=== PATIENT | female | born 1965 | race Caucasian/White ===

== ENCOUNTER 2019-01-24 14:23 | Outpatient (CLI) | payer BC | END 2019-01-24 15:01 | disposition home or self-care (01) | LOC: SLEEP 14:23 | PROVIDERS: ATTEND Otolaryngology Otolaryngology/Facial Plastic Surgery | DX: G47.33 Obstructive sleep apnea (adult) (pediatric) (principal) ==

== ENCOUNTER → 2019-05-02 | Outpatient (CLI) | payer BC ==
--- NOTE | 2019-05-02 12:09 | Diagnostic Imaging Report ---
INDICATION: Gastroesophageal reflux. TECHNIQUE: Study was performed in conjunction with speech pathology. Videofluoroscopy was performed during the swallowing of barium at multiple consistencies. Patient ingested thin barium as well as applesauce, banana, meat, and cracker consistency. Total of 45 seconds of fluoroscopy was utilized. FINDINGS: There is normal oral phase. There is normal epiglottic tilt and laryngeal elevation. No laryngeal penetration or aspiration was observed. IMPRESSION: Normal modified barium swallow study. Dictated by: Dictated on workstation # [id number]
== END ==
LOC: RAD 09:37
PROVIDERS: ATTEND Surgery
DX: K21.9 Gastro-esophageal reflux disease without esophagitis (principal)
CPT/HCPCS: 74230

== ENCOUNTER → 2021-03-13 | Outpatient (CLI) | payer BC ==
[2021-03-13 10:04] VITALS: BP 119/81
== END ==
LOC: CARD 09:33
PROVIDERS: ATTEND Internal Medicine Cardiovascular Disease
DX: I34.0 Nonrheumatic mitral (valve) insufficiency (principal); I10 Essential (primary) hypertension
CPT/HCPCS: 93306; 93351

== ENCOUNTER → 2023-01-16 | Outpatient (CLI) | payer BC ==
[~2023-01-16] VITALS: Ht 170.2 cm; Wt 70.5 kg
[~2023-01-16] MED LIST: LIDOCAINE 1% INJ 10 ML VIAL INJ ONE; LIDOCAINE 1% INJ 10 ML VIAL ONE
--- NOTE | 2023-01-16 12:30 | Diagnostic Imaging Report ---
INDICATION: Right lobe thyroid nodule. Patient presents for ultrasound-guided fine-needle aspiration. Patient brought to the procedure room placed on table in the supine position. Ultrasound imaging of the right neck was performed to evaluate appropriate entry site. Right neck was then prepped and draped in usual sterile fashion. Small amount 1% lidocaine was utilized for local anesthesia. 4 passes were made into the dominant solid nodule in the upper pole right lobe of thyroid utilizing 25-gauge needles and fine-needle aspiration technique. Hemostasis was obtained. Patient tolerated procedure well. IMPRESSION: Successful ultrasound-guided fine-needle aspiration of the dominant solid nodule upper pole right lobe of thyroid. Pathology results are currently pending. Dictated by: Dictated on workstation # [id number]
--- NOTE | 2023-01-16 13:01 | Diagnostic Imaging Report ---
Indication: Right lobe thyroid nodule. Patient presents for ultrasound guided fine-needle aspiration. Patient brought to the procedure room and placed on table in supine position. Ultrasound imaging right neck was performed to evaluate appropriate entry site. Right neck was then prepped and draped in usual sterile fashion. Small amount 1% lidocaine was utilized for local anesthesia. Total of 4 passes were made into the hypoechoic nodule midportion right lobe of thyroid utilizing 25-gauge needles and fine needle aspiration technique. Hemostasis was obtained. Patient tolerated the procedure well and left the Department in stable condition. IMPRESSION: Successful ultrasound guided fine-needle aspiration of a nodule in the midportion right lobe of thyroid. Pathology results are currently pending. Dictated by: Dictated on workstation # [id number]
== END ==
LOC: RAD 10:40
PROVIDERS: ATTEND Otolaryngology Otolaryngology/Facial Plastic Surgery
DX: E04.1 Nontoxic single thyroid nodule (principal)